=== PATIENT | female | born 2000 | race Caucasian/White ===

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

== ENCOUNTER 2021-05-23 22:50 | Emergency (ER) | payer OTHER ==
[~2021-05-23] VITALS: Ht 160 cm; Wt 74.8 kg
[2021-05-23 23:06] VITALS: BP 125/90
--- NOTE | 2021-05-23 23:11 | NUR ---
PT SENT TO LOBBY
--- NOTE | 2021-05-24 02:13 | NUR ---
PT AMBULATED TO BED 01.
--- NOTE | 2021-05-24 02:29 | NUR ---
ERMD EVALUATING PT. NO NURSING INTERVENTIONS REQUIRED.
[2021-05-24 02:30] VITALS: BP 125/90
--- NOTE | 2021-05-24 02:30 | NUR ---
Patient discharged with v/s stable. Written and verbal after care instructions given and explained. Patient verbalized understanding. Ambulatory with steady gait. All questions addressed prior to discharge. Advised to follow up with PMD.
== END 2021-05-24 02:30 | disposition home or self-care (01) ==
LOC: MED 22:50
DX: M79.601 Pain in right arm (principal)
CPT/HCPCS: 73060; 99283

== ENCOUNTER 2022-03-23 17:15 | Emergency (ER) | payer OTHER ==
[~2022-03-23] VITALS: Ht 160 cm; Wt 76.7 kg
[2022-03-23 17:17] VITALS: BP 126/57
--- NOTE | 2022-03-23 17:28 | NUR ---
PATIENT AMBULATED TO BED 7.
--- NOTE | 2022-03-23 17:34 | NUR ---
22 Y/O FEMALE C/O VAGINAL BLEEDING WITH VERY LARGE CLOTS X 17 DAYS. PT STATES HEADACHE 4/10 DESCRIBES THROBBING NON-RADIATING. PT STATES +LIGHTHEADED. DENIES FEVER/CHILLS. DENIES N/V/D. DENIES PMH NKA
--- NOTE | 2022-03-23 17:49 | NUR ---
KAILA MASSEYTO AT PT BEDSIDE FOR FURTHER EVALUATION.
--- NOTE | 2022-03-23 18:01 | NUR ---
PT REQUESTING A FEMALE MD TO DO PELVIC EXAM. KAILA KRAUSE NOTIFIED.
[2022-03-23 18:08] LABS: BASOPHILS % (AUTO) 0.3 % (0.0-2.0); EOSINOPHILS # (AUTO) 0.1 K/uL (0-0.4); EOSINOPHILS % (AUTO) 0.8 % (0.0-4.0); HEMATOCRIT 28.1 % (36-48); LYMPHOCYTES # (AUTO) 3.3 K/uL (2.5-16.5); LYMPHOCYTES % (AUTO) 37.8 % (20.5-51.1); MEAN CORPUSCULAR HEMOGLOBIN 24 pg (27-31); MEAN CORPUSCULAR HGB CONC 32 g/dL (33-37); MEAN CORPUSCULAR VOLUME 76.3 fL (80-94); MONOCYTES # (AUTO) 0.5 K/uL (0.8-1.0); MONOCYTES % (AUTO) 6.2 % (1.7-9.3); NEUTROPHILS # (AUTO) 4.8 K/uL (1.8-7.7); NEUTROPHILS % (AUTO) 54.9 % (42.2-75.2); PLATELET COUNT (AUTO) 305 K/uL (140-450); RED BLOOD CELL COUNT(AUTO) 3.69 MIL/uL (4.20-5.40); RED CELL DISTRIBUTION WIDTH 16.2 % (11.6-13.7); WHITE BLOOD COUNT (AUTO) 8.8 K/uL (4.8-10.8)
[2022-03-23 18:22] LABS: ANION GAP 10.3 (8-16); CREATININE 0.8 mg/dL (0.6-1.3); POTASSIUM 4.3 mmol/L (3.5-5.1)
--- NOTE | 2022-03-23 18:49 | NUR ---
US TECH AT PT BEDSIDE.
--- NOTE | 2022-03-23 19:15 | NUR ---
Almas schneider in [facility] - 03/23/22 at 1915 by [facility] GAVE REPORT TO BANG COLON. TRANSFER OF CARE AT THIS TIME.
--- NOTE | 2022-03-23 19:15 | NUR ---
GAVE REPORT TO LUIS ANTONIO COLON. TRANSFER OF CARE AT THIS TIME.
[2022-03-23] MEDS ORDERED: IBUP-2213 PO (19:36)
[2022-03-23] MEDS ORDERED: ASCO500T95 PO (19:36)
[2022-03-23] MEDS ORDERED: FERR325E14 PO (19:36)
[2022-03-23 20:45] VITALS: BP 121/67
--- NOTE | 2022-03-23 20:45 | NUR ---
Patient discharged with v/s stable. Written and verbal after care instructions given and explained. Patient alert, oriented and verbalized understanding of instructions. Ambulatory with steady gait. All questions addressed prior to discharge. ID band removed. Patient advised to follow up with PMD. Rx of VIT C, FERROUS SULFATE, IBUPROFEN given. Opportunity to ask questions provided and answered.
== END 2022-03-23 20:45 | disposition home or self-care (01) ==
LOC: MED 17:15
DX: N93.8 Other specified abnormal uterine and vaginal bleeding (principal); D50.9 Iron deficiency anemia, unspecified
CPT/HCPCS: 36415; 76856; 80048; 81002; 81025; 85025; 99284; Q0092